=== PATIENT | female | born 1985 | race Caucasian/White ===

== ENCOUNTER 2017-05-26 11:49 | Outpatient (CLI) | payer BC ==
--- NOTE | 2017-05-26 14:02 | XRAY Report ---
TWO-VIEW CHEST: 05/26/2017 CLINICAL INDICATION: Bronchitis. FINDINGS: Frontal and lateral views of the chest demonstrate a normal cardiac silhouette. The lungs are clear. No effusion or pneumothorax is present. IMPRESSION: NORMAL CHEST. JOB #: [id number] EXT JOB #:[id number]
== END 2017-05-26 11:50 | disposition home or self-care (01) ==
LOC: DI 11:49
PROVIDERS: ATTEND Physician Assistant Medical
DX: J20.9 Acute bronchitis, unspecified (principal)
CPT/HCPCS: 71020

== ENCOUNTER 2017-10-23 08:00 | Outpatient (CLI) | payer BC | END 2017-10-23 08:01 | disposition home or self-care (01) | LOC: LAB.WCP 08:00 | PROVIDERS: ATTEND Physician Assistant Medical | DX: R19.7 Diarrhea, unspecified (principal) | CPT/HCPCS: 87045; 87046; 87177; 87209 ==

== ENCOUNTER 2019-01-19 15:31 | Outpatient (CLI) | payer OTHER, BC | END 2019-01-19 15:32 | disposition home or self-care (01) | LOC: SC 15:31 | PROVIDERS: ATTEND Nurse Practitioner Family | DX: G47.10 Hypersomnia, unspecified (principal); R41.89 Other symptoms and signs involving cognitive functions and awareness; G47.8 Other sleep disorders; R53.83 Other fatigue; R06.83 Snoring; R06.81 Apnea, not elsewhere classified; E66.9 Obesity, unspecified; Z68.34 Body mass index [BMI] 34.0-34.9, adult | CPT/HCPCS: 99203; 99212 ==

== ENCOUNTER 2019-02-06 19:45 | Outpatient (CLI) | payer OTHER, BC | END 2019-02-06 19:46 | disposition home or self-care (01) | LOC: SC 19:45 | PROVIDERS: ATTEND Internal Medicine Pulmonary Disease | DX: G47.10 Hypersomnia, unspecified (principal) | CPT/HCPCS: 95810 ==

== ENCOUNTER 2019-02-23 15:38 | Outpatient (CLI) | payer OTHER, BC | END 2019-02-23 15:39 | disposition home or self-care (01) | LOC: SC 15:38 | PROVIDERS: ATTEND Nurse Practitioner Family | DX: R06.83 Snoring (principal) | CPT/HCPCS: 99212; 99214 ==

== ENCOUNTER 2024-05-10 14:48 | Outpatient (CLI) | payer OTHER ==
[2024-05-10] MEDS ORDERED: iohexoL-300 100 ML VIAL ONE (14:52)
[2024-05-10] MEDS: iohexoL-300 100 ML VIAL IVP ONE (15:35)
--- NOTE | 2024-05-10 21:17 | CT Report ---
PROCEDURE: Angio Head/Neck INDICATIONS: DIZZY,VERTIGO TECHNIQUE: After the administration of intravenous contrast, 1 mm thick sections acquired from the aortic arch t hrough the [place]. 3-dimensional fskyefw-ckjyfmjvz-iohjrmitvj (MIP) and/or volume renderin g reformats were acquired of the central intracranial vasculature and neck separately. For radiation dose reduction, the following was used: automated exposure control, adjustment of mA and/or kV acco rding to patient size. CONTRAST: Omni 300 80ml COMPARISON: CT head 05/10/2024, MRI brain 02/02/2024 FINDINGS: Image quality: Diagnostic. HEAD CT: Please see separately dictated CT head report of 05/10/2024. HEAD CT ANGIOGRAPHY: Anterior circulation: Intracranial internal carotid arteries are normal in size and flow. The flow within the paired anterior cerebral arteries is normal and symmetric. The flow within the middle cer ebral arteries is normal and symmetric. The anterior communicating artery is seen. No aneurysms are seen. Posterior circulation: Visualized portions of the vertebral arteries demonstrate normal caliber, and join to form a normal appearing basilar artery. Flow within the posterior cerebral arteries is norm al and symmetric. No aneurysms are seen. NECK CT ANGIOGRAPHY: Carotid system: The great vessels demonstrate a conventional anatomy as they arise from the aortic a rch. The origins of the common carotid arteries appear patent. The common carotid arteries demonstr ate normal caliber and courses. The bifurcation regions are both widely patent. The internal caroti d arteries demonstrate normal calibers and courses. Posterior circulation: Slight right vertebral artery dominance. The origins of the vertebral arterie s both appear widely patent. The more superior extracranial portions of both vertebral arteries also demonstrate normal courses and calibers. They join to form a normal appearing basilar artery. Soft tissues: Visualized neck soft tissues demonstrate no suspicious abnormalities. Bones: No suspicious bony lesions. Visualized cervical spine appears normally aligned. IMPRESSION: No significant intracranial arterial abnormality is seen. No significant abnormality is seen within the arteries of the neck. The estimate of stenosis included in the report of the imaging study was calculated using the NASCET method Reviewed by: Darlene Calderon MD on 05/10/2024 9:16 PM PDT Approved by: Darlene Calderon MD on 05/10/2024 9:16 PM PDT Station ID: [id number]
--- NOTE | 2024-05-10 21:18 | CT Report ---
PROCEDURE: Head WO INDICATIONS: DIZZINESS TECHNIQUE: Noncontrast 4.5 mm thick angled axial sections acquired from the foramen magnum to the vertex. For r adiation dose reduction, the following was used: automated exposure control, adjustment of mA and/or kV according to patient size. COMPARISON: CTA head and neck 05/10/2024, MRI brain 02/02/2024 FINDINGS: Image quality: Excellent. CSF spaces: Basal cisterns are patent. No extra-axial fluid collections. Ventricles are normal in size and shape. Brain: No midline shift. No intracranial masses or hemorrhage. [place]-white matter interface is norm al. Skull and face: Calvarium and visualized facial bones are intact, without suspicious lesions. Sinuses: Visualized sinuses and mastoids are clear. IMPRESSION: No acute intracranial pathology. Reviewed by: Darlene Calderon MD on 05/10/2024 9:16 PM PDT Approved by: Darlene Calderon MD on 05/10/2024 9:16 PM PDT Station ID: [id number]
== END 2024-05-10 14:49 | disposition home or self-care (01) ==
LOC: DI 14:48
PROVIDERS: ATTEND Psychiatry & Neurology Neurology
DX: R42 Dizziness and giddiness (principal); H93.8X3 Other specified disorders of ear, bilateral; Z87.898 Personal history of other specified conditions
CPT/HCPCS: 70450; 70496; 70498; Q9967